=== PATIENT | female | born 1990 | race Hispanic/Latino ===

== ENCOUNTER 2016-09-12 20:24 | Emergency (ER) | payer OTHER ==
[~2016-09-12] VITALS: Ht 160 cm; Wt 72.7 kg
[2016-09-12 20:52] VITALS: BP 110/70; PULSE 76; RESP 20; O2SAT 96
[2016-09-12 21:21] LABS: BASOPHILS % (AUTO) 0.4 % (0-3); MONOCYTES % (AUTO) 7.9 % (4-12); Mean Corpuscular Hemoglobin 28.2 pg (27.0-35.0); Mean Corpuscular Volume 85.5 fL (81-100); NEUTROPHILS % (AUTO) 63.5 % (40-74); Platelet Count 315 bil/L (150-400)
--- NOTE | 2016-09-12 22:22 | ED.REPORT ---
HPI-Preg Under 20 Weeks Date of Service Sep 12, 2016 ED Provider: Omar Dykes MD The patient is a 26 year old female with history of migraines, who presents to the emergency department complaining of epigastric pain that began 1 week ago. She has noticed the pain everyday since onset but it usually goes away. Today her pain has remained constant all day. Her pain radiates around her ribs to her back. She has also noticed nausea and vomiting. Her symptoms are worse with eating or movement. She denies fever or chills. She is currently about 8 weeks . She has not been evaluated yet for this but does have an appointment scheduled in 2 days. She has noticed mild pelvic cramping but denies any vaginal bleeding or discharge. She has been a total of 3 times, she has one living child, and had an several years ago. The patient mentions that last week she had an episode of vision loss that lasted for about 20 minutes. She states she was driving and suddenly everything "went black." She developed a headache after the vision change. She has never had similar symptoms in the past. She has not had similar symptoms since. Nursing Notes Stated Complaint: STOMACH/BACK PAIN, ~8 WKS Chief Complaint: Female Abdominal Pain Nursing Notes Reviewed: Yes Allergies: Coded Allergies: No Known Allergies (Verified Allergy, Unknown, 07/19/15) No Active Prescriptions or Reported Meds General Time Seen by Provider: 22:22 Chief Complaint Abdominal pain Hx Obtained From: Patient Arrived By: Walk-in Onset Occurred: 1 week ago Symptom Duration: Since onset Progression Since Onset: Constant Location: : Abdomen upper: Epigastric Quality: Painful Radiation: : Back Severity: Current: Moderate Severity: Maximum: Severe Recent Healthcare: No recent doctor visit, No recent hospitalization Similar Sx Previous: No Past Medical History Past Medical History Denies A1 Past Surgical History Denies Family History Noncontributory Smoking History Never Smoker Social History Alcohol Use: Denies alcohol use Drug Use: Denies drug use Other Social History: Good social support, Lives with children, Local resident Ambulatory Status Independent Review of Systems Constitutional: Denies: Chills, Fever GI: Reports: Abdominal pain, Nausea, Vomiting Female: Reports: Pelvic pain, , Denies: Vaginal bleeding - abnl, Vaginal discharge Musculoskeletal: Reports: Back pain Neurologic: Reports: Vision change (resolved), Denies: Headache (resolved) Complete sys rev & neg: except as marked. Physical Exam Initial Vital Signs Vital Signs (First) Date Time Temp Pulse Resp B/P Pulse Ox O2 Delivery O2 Flow Rate FiO2 09/12/16 20:52 36.6 76 20 110/70 96 Room Air Initial VS: Reviewed Head / Eyes: Atraumatic, Normocephalic, PERRL ENT: Mucous membranes moist, Conjunctiva normal, No scleral icterus Neck: Supple, Non-tender, Full range of motion Respiratory: Breath sounds normal, Clear to auscultation, No respiratory distress Cardiovascular: Regular rate & rhythm, Heart sounds normal, Intact distal pulses Back: No CVA tenderness Lymphatic: No lymphadenopathy Extremities: Vascular intact, Neuro intact, No swelling, No tenderness Skin: Warm, Dry, No cyanosis Neurologic: Alert, Oriented, Nonfocal Psychiatric: Mood/affect normal, Behavior normal, Normal thought content General/Constitutional: Awake, Alert, No acute distress, Cooperative Abdomen: Soft, No guarding, No rebound, BS normoactive, No distention, No hernia, No palpable mass, No pulsatile mass Tenderness/Guarding/Rebound: Positive: Tender RUQ..., Tender epigastric, Tender suprapubic, Negative: Tender LLQ..., Tender RLQ... Female Genitourinary: Exam deferred : Exam deferred Interpretation & Diagnostics Interpretation & Diagnostics: Urine : positive Urine dip: positive for leukocytes Lab Results Interpretation Result Diagram: 09/12/16210409/12/16 210 Test 09/12/16 21:00 09/12/16 21:05 Urine Color Yellow (YELLOW) Urine Appearance Clear (CLEAR,HAZY) Urine pH 7.0 (5.0-8.0) Urine Specific Sharps 1.015 (1.003-1.035) Urine Protein Negativemg/dL (NEG,TRACE) Urine Glucose (UA) Negativemg/dL (NEGATIVE) Urine Ketones Negativemg/dL (NEGATIVE) Urine Occult Blood Negative (NEGATIVE) Urine Nitrite Negative (NEGATIVE) Urine Bilirubin Negative (NEGATIVE) Urine Urobilinogen Normalmg/dL (NORMAL) Urine Leukocyte Esterase Negative (NEGATIVE) Urine RBC 0-2/hpf (0-2) Urine WBC 0-5/hpf (0-5) Urine Epithelial Cells Few/hpf (NONE-MOD) Urine Crystals None seen (NONE SEEN) Urine Bacteria Few/hpf (NONE-FEW) Urine Hyaline Casts None/lpf (NONE) Urine Granular Casts None seen (NONE SEEN) Urine Waxy Casts None seen (NONE SEEN) Urine Red Blood Cell Casts None seen (NONE SEEN) Urine White Blood Cell Casts None seen (NONE SEEN) Urine Mucus None seen (None Seen) Urine Trichomonas None seen (NONE SEEN) Urine Yeast None (NONE SEEN) Urinalysis Comment Amorphous sediment Urine Culture Reflexed Not indicated Hold Urine Received (Received) White Blood Count 11.2th/mm3 (3.8-10.1) Red Blood Count 4.75mil/mm3 (3.90-5.20) Hemoglobin 13.4g/dL (12.0-15.6) Hematocrit 40.6% (35.0-46.0) Mean Corpuscular Volume 85.5fL (81-100) Mean Corpuscular Hemoglobin 28.2pg (27.0-35.0) Mean Corpuscular Hemoglobin Concent 33.0% (32.0-37.0) Red Cell Distribution Width 13.3% (12.3-15.4) Platelet Count 315bil/L (150-400) Neutrophils (%) (Auto) 63.5% (40-74) Lymphocytes (%) (Auto) 26.9% (14-46) Monocytes (%) (Auto) 7.9% (4-12) Eosinophils (%) (Auto) 1.0% (0-5) Basophils (%) (Auto) 0.4% (0-3) Sodium Level 135mEq/L (134-144) Potassium Level 3.7mEq/L (3.5-5.2) Chloride Level 99mEq/L (97-108) Carbon Dioxide Level 19mmol/L (18-29) Blood Urea Nitrogen 8mg/dL (6-20) Creatinine 0.61mg/dL (0.57-1.00) Estimat Glomerular Filtration Rate 167mL/min (>59) Glucose Level 114mg/dL (60-99) Calcium Level 9.5mg/dL (8.5-10.1) Magnesium Level 2.0mg/dL (1.6-2.6) Total Bilirubin 0.2mg/dL (0.0-1.2) Aspartate Amino Transf (AST/SGOT) 20U/L (0-50) Alanine Aminotransferase (ALT/SGPT) 20U/L (0-32) Alkaline Phosphatase 96U/L (25-150) Total Protein 8.0g/dL (6.4-8.4) Albumin 4.1g/dL (3.4-5.0) Lipase 25U/L (13-60) Hold Eisenberg Top Tube Received (Received) Re-Eval/Medical Decision Source of Hx: Old records Re-Evaluation/Progress : Time of Eval: 23:21 Re-Evaluation/Progress Note: Rechecked the patient. Discussed lab results, diagnosis, and plan for discharge. All questions were addressed. Counseled Regarding: Diagnosis, Lab results, Need for follow-up, When/why to return to ED Discharge & Departure Primary Impression: Epigastric abdominal pain Additional Impression: Weeks of gestation: 8 weeks Qualified Code: Z3A.08 - 8 weeks gestation of Disposition: Home Discharge Condition All VS Reviewed: Yes Condition: Stable Patient Instructions: (ED) Additional Instructions: Thank you for entrusting us with your care today. Your workup today is reassuring. There is no evidence of a urinary tract infection. Use Tylenol as needed for your discomfort. Keep your appointment with the OBGYN that is scheduled for the . Seek care for any new or concerning symptoms. The upper abdominal pain you are experiencing may be related to a gallbladder condition. I recommend you discuss this with your primary provider. Additionally, you reported some significant lower abdominal cramping similar to cramping with your period. If the cramping becomes much worse, especially if it is associated with bleeding or worsening pain, return to the emergency department. Follow-up right away for worsening upper abdominal pain especially if it is associated with fever or jaundice. Referrals: [facility] Scribe Attestation Portions of this note were transcribed by Shivani Butler. I, Dr. Dykes personally performed the history, physical exam and medical decision-making; I reviewed and confirmed the accuracy of the information in the transcribed note. Signed by: Tita Cervantes, 09/12/2016 at 2330. copies to: [facility] Omar Dykes MD Sep 12, 2016 22:22 Shivani Butler Sep 12, 2016 22:29
[2016-09-12 23:04] LABS: APPEARANCE,URINE CLEAR (CLEAR,HAZY); COLOR,URINE YELLOW (YELLOW); OCCULT BLOOD,URINE NEGATIVE (NEGATIVE); UROBILINOGEN,URINE NORMAL (NORMAL)
[2016-11-19] MEDS ORDERED: HYDR-4003 PO (16:32)
[2016-11-19] MEDS ORDERED: PREN-12 PO (16:32)
[2016-11-19] MEDS ORDERED: ONDA-53 PO (16:32)
== END 2016-09-12 23:36 | disposition home or self-care (01) ==
LOC: SED 20:24
DX: O26.891 Other specified pregnancy related conditions, first trimester (principal); Z3A.08 8 weeks gestation of pregnancy

== ENCOUNTER 2016-10-29 23:45 | Emergency (ER) | payer OTHER ==
[~2016-10-29] VITALS: Ht 160 cm; Wt 77.3 kg
[2016-10-29 23:56] VITALS: BP 92/63; PULSE 81; RESP 15; O2SAT 95
--- NOTE | 2016-10-30 01:02 | ED.REPORT ---
HPI-Allergic Reaction Date of Service October 30, 2016 ED Provider: Josafat Méndez MD The pt is a 26 y/o female presenting to the ED complaining of a rash on her forearms onset earlier today. She noticed it after she ate tong and radish tacos w/ green salsa. She is also 15 weeks and taking a vitamin. She does not use sunscreen. Nursing Notes Stated Complaint: RASH Chief Complaint: Allergic Reaction Nursing Notes Reviewed: Yes Allergies: Coded Allergies: No Known Allergies (Verified Allergy, Unknown, 07/19/15) Scheduled Hydrocortisone (Hydrocortisone) 453.6 Gm Cream..g. 453.6 GM TP QID Loratadine (Claritin) 10 Mg Capsule 10 MG PO DAILY General Time Seen by MD: 01:01 Chief Complaint Rash (Bilat forearms ) Hx Obtained From: Patient Arrived By: Walk-in Onset Occurred: 5 - 8 hours ago Recent Healthcare: No recent doctor visit, No recent hospitalization Similar Sx Previous: No Past Medical History Past Medical History Denies A1 Past Surgical History Denies Family History Noncontributory Smoking History Never Smoker Social History Alcohol Use: Denies alcohol use Drug Use: Denies drug use Other Social History: Good social support, Lives with children, Local resident Ambulatory Status Independent Review of Systems Constitutional: Denies: Chills, Fever Skin: Reports Rash (Bilat forearms ) Complete sys rev & neg: except as marked. Physical Exam Initial Vital Signs Vital Signs (First) Date Time Temp Pulse Resp B/P Pulse Ox O2 Delivery O2 Flow Rate FiO2 10/29/16 23:56 36.4 81 15 92/63 95 Room Air Initial VS: Reviewed Head / Eyes: Atraumatic, Normocephalic, PERRL ENT: Mucous membranes moist, Conjunctiva normal, No scleral icterus Neck: Supple, Non-tender, Full range of motion Abdomen / GI: Soft, Non-tender, No guarding, No rebound, No distention Back: No CVA tenderness Neurologic: Alert, Oriented, Nonfocal Psychiatric: Mood/affect normal, Behavior normal, Normal thought content General/Constitutional: Awake, Alert Respiratory / Chest: Breath sounds NL, Breath sounds = bilat, No respiratory distress, No rales, No rhonchi, No wheezing, No retractions, No stridor Cardiovascular: Heart rate NL, Regular rhythm, Heart sounds NL, Peripheral circulation NL Skin: Warm, Dry Rash on dorsal surface Maculopapular rash Re-Eval/Medical Decision Med Decision/Clinical Course 18-year-old currently twenty weeks presents with an itchy rash on the dorsum of her arms only in a pattern consistent with solar dermatosis by some sensitizing compound. Hydrocortisone cream and loratadine provided. Sun protection recommended. Some ingestion or other is sensitized her but the actual culprit is not known. Re-Evaluation/Progress : Time of Eval: 02:00 Re-Evaluation/Progress Note: Pt rechecked. Informed pt of plan for treatment. Pt understands and agrees with plan for treatment. F/U instructions and RTER warnings given. All questions addressed. Counseled Regarding: Diagnosis, Need for follow-up, When/why to return to ED Discharge & Departure Shift Change Sign-Out Response to Therapy: Improved Primary Impression: Solar dermatitis Additional Impressions: Second trimester Allergic dermatitis Disposition: Home Discharge Condition All VS Reviewed: Yes Condition: Stable Additional Instructions: This appears to be an allergic reaction, stimulated by the sun. It is difficult to know what particular compound has sensitized you, but many compounds are known to do so, including some vitamins. Claritin daily for itch and antihistamine. This is safe in . Hydrocortisone cream three times daily to the rash. Follow-up with your doctor and with your CORE MEASURES ABSTRACTOR. Referrals: NOPCP (PCP) Scribe Attestation Portions of this note were transcribed by Girma Orlando. I, Dr. Méndez personally performed the history, physical exam and medical decision-making; I reviewed and confirmed the accuracy of the information in the transcribed note. Signed by : Tita Hubbard, 10/30/16 and 0306. Josafat Méndez MD October 30, 2016 01:01 Girma Orlando October 30, 2016 03:06
[2016-10-30] MEDS ORDERED: HYDR28.484 RC (02:15)
[2016-10-30] MEDS ORDERED: LORA10CA PO (02:15)
[2016-10-30] MEDS ORDERED: HYDR453.3 TP (02:18)
[2016-10-30 02:41] VITALS: PULSE 80; RESP 16
[2016-11-19] MEDS ORDERED: ONDA-53 PO (16:32)
[2016-11-19] MEDS ORDERED: HYDR-4003 PO (16:32)
[2016-11-19] MEDS ORDERED: PREN-12 PO (16:32)
== END 2016-10-30 02:42 | disposition home or self-care (01) ==
LOC: SED 23:45
DX: O99.712 Diseases of the skin and subcutaneous tissue complicating pregnancy, second trimester (principal); L57.8 Other skin changes due to chronic exposure to nonionizing radiation; L23.9 Allergic contact dermatitis, unspecified cause; Z3A.20 20 weeks gestation of pregnancy

== ENCOUNTER 2016-11-23 05:47 | Day surgery (SDC) | payer OTHER ==
[2016-11-23] VITALS (13 sets, daily range): BP systolic 94–117; BP diastolic 51–73; PULSE 70–112; RESP 9–17; O2SAT 92–99
[~2016-11-23] VITALS: Ht 160 cm; Wt 75.0 kg
[~2016-11-23 05:47] MED LIST: HYDR-4003 PO; ONDA-53 PO; PREN-12 PO
[2016-11-23] MEDS ORDERED: Rocuronium 10 mg/mL 5 mL Inj ONE (05:48)
[2016-11-23] MEDS ORDERED: Ondansetron 2 mg/mL 2 mL Inj ONE (05:48)
[2016-11-23] MEDS ORDERED: Phenylephrine/NS 100 mCg/mL 10 mL Syringe IVPUSH ONE (05:48)
[2016-11-23] MEDS ORDERED: Neostigmine 1 mg/mL 10 mL Inj ONE (05:48)
[2016-11-23] MEDS ORDERED: Glycopyrrolate 0.2 MG/ML 1mL Inj ONE (05:48)
[2016-11-23] MEDS ORDERED: fentaNYL-PF 50 mCg/mL 2 mL Inj ONE (05:48)
[2016-11-23] MEDS ORDERED: Propofol 10,000 mCg/mL 20 mL Inj ONE (05:48)
[2016-11-23] MEDS ORDERED: Succinylcholine Chloride 20 mg/mL 5 mL Inj ONE (05:48)
[2016-11-23] MEDS ORDERED: EPHEDrine/NS 5 mg/mL 5 mL Syringe ONE (05:48)
[2016-11-23] MEDS ORDERED: CeFAZolin 2 Gm/50 mL D5W IV Premix IV ONE (06:00)
[2016-11-23] MEDS ORDERED: Heparin 5,000 Unit/mL Inj ONE (06:37)
[2016-11-23] MEDS: Lactated Ringer's 1,000 ML IV SCH ×2 (06:40→07:27)
--- NOTE | 2016-11-23 07:16 | PCM.HPANE ---
Patient Data Surgeon Admitting Provider: Attending Provider:Kyle Pradhan MD Primary Care Physician:Ricky Other Provider:Abebe Corley Anesthesia Reason for Visit Gallstones Ht/WT & BMI Height (Feet): 5 Height (Inches): 3.00 Weight (Kilograms): 75.000 Body Mass Index 29.00 Allergies Coded Allergies: No Known Allergies (Verified Allergy, Unknown, 07/19/15) Past Anesthesia History Anesthesia History: Positive for:: Anesthesia Reactions (only with preg- labor epidural ), Denies:: Abnormal Airway, Difficult Intubation, Fam Anesthesia Reaction Additional Information: Never had surgery in the past, denies anesthetic section. Diabetes History Hx Diabetes?: No Current Bedside Blood Glucose: 95 MRSA MRSA: No Medications Hypertension Medication: No Home Meds Incl Beta Isabella: No Reported Medications Vit W-Ca,Fe,FA(<1 mg) ( Formula)1 Each Tablet1 Each PO DAILY 11/19/16 Ondansetron 4 Mg Tablet4 Mg PO DAILY PRN For Nausea 11/19/16 Hydrocodone-Acetaminophen 5-325 mg 1 Each Tablet1 Tablet PO Q4H PRN For Pain Ref 0 11/19/16 Discontinued Scripts Hydrocortisone 453.6 Gm Cream..g.453.6 Gm TP QID #1 TUBE Prov:Josafat Méndez MD 10/30/16 Loratadine (Claritin)10 Mg [id number] Mg PO DAILY #30 CAPSULE Prov:Josafat Méndez MD 10/30/16 History History of ENT Problems?: No HEENT History: Denies:: Abnormal Airway Cataracts Difficult Intubation Dysphagia Glaucoma Hearing Problem Sinus Problem TMJ Denture Type: None Teeth Condition: Within Normal Limits Hx of Heart Problems?: Yes Cardiovascular History: Positive for:: Edema (slight with ) Denies:: AICD Abdominal Aortic Aneurism Atrial Fibrillation Cardiac Surgery Chest Pain Congestive Heart Failure Coronary Artery Disease Heart Murmur Hypertension Irregular Heartbeat Pacemaker Peripheral Vascular Hx of Respiratory Problem?: No Respiratory History: Denies:: Asthma COPD Emphysema Oxygen Administration Pneumonia Tuberculosis Use of C-PAP Machine Use of Inhalers / NEBS Hx Neurologic Problems?: No Neurological History: Positive for:: Headaches (since age 11) Denies:: Alzheimer's Disease CVA Multiple Sclerosis Parkinson's Disease Seizures TIA Hx of GI Problems?: Yes Other History/Comment Daily reflux, nausea (related to (?) or gallstones Hx of Problems?: Yes Genitourinary History: Positive for:: Urinary Tract Infection (had infection during 1st trimester ) Denies:: Kidney Stones Female Hx: Positive for:: Currently (19 weeks; FHT 150's per C RN) Denies:: Problems with Breasts? Other History/Comment @19 weeks Skin History: Denies:: History Skin Disorders? Pressure Ulcers Hx Musculoskeletal Problems?: No Musculoskeletal History: Denies:: Fibromyalgia Joint Replacement Musculoskeletal Trauma Osteoarthritis Systemic Lupus Hx of Psycho/Social Problems?: No Psycho Social History: Denies:: Anxiety Hx Depression Hx Surgeries?: No Hx Any Other Health Problems?: No Other History: Denies:: Cancer Thyroid Disease History Blood Transfusions: Positive for:: Accept Blood Products? Denies:: Blood Transfusions Hx Diabetes: NoBedside Blood Glucose: 95 Hx Alcohol Use: NoHx Substance Use: No Smoking Status: Never Smoker Stop/Bang S-Snoring: Do You Snore Loudly: No T-Tired: feel tired, fatigued: Yes O-Obsered: Observed not breath: No P-Blood Pressure: treated: No B- Body Mass Index > 35 kg/m2: No A- Age over 50: No N- Neck Large Circumference: No G- Gender Male: No MARIA LUZ Total Score: 1 Risk Assessment Category Category 1A: Patient has history of documented sleep apnea, and HAS NOT received any narcotic, sedative or anesthesia administration during this stay. Category 1B: Patient has history of documented sleep apnea, and HAS received any narcotic , sedative or anesthesia administration during this stay Category 2: Patient has SUSPECTED Obstructive Sleep Apnea, and HAS received any narcotic , sedative or anesthesia administration during this stay. Category 3: Patient has SUSPECTED Obstructive Sleep Apnea and HAS NOT received narcotic, sedative or anesthesia administration during this stay. Category 4: Outpatient in Procedural Areas with known sleep apnea or who screen positive for High Risk via the STOP/BANG questionnaire. Exam Exam Vital Signs Vital Signs Date Time Temp Pulse Resp B/P Pulse Ox O2 Delivery O2 Flow Rate FiO2 11/23/16 06:28 35.9 95 15 94/52 99 Room Air General Appearance: Alert, Oriented X3, Cooperative HEENT/AIRWAY: MP 2 Lungs: Clear to Auscultation, Normal Air Movement Heart: Exam Unremarkable, Regular Rate/Rhythm, No Murmurs/Rubs/Gallops Meds/Labs/Diagnostics Admission Meds Current Medications Lactated Ringer's (Lr) 1,000 ml @ 120 mls/hr Q8H20M IV Last administered on t 06:40; Start 11/23/16 at 05:00; Stop 11/23/16 at 13:19 Bedside Blood Glucose: 95 Plan Impression Patient chart reviewed, patient interviewed and anesthestic plan with risks, benefits, and alternatives discussed, and informed consent obtained. ASA Physical Status: ASA2 Mod Systemic Disease Anesthetic Plan: GA Bene/Risks/Altern/Consents: Yes HP Complete Prior to Induction: Yes Flavio Dunn MD Nov 23, 2016 07:16
[2016-11-23] MEDS ORDERED: Heparin 5,000 Unit/mL Inj SUBQ ONE (07:42)
[2016-11-23] MEDS ORDERED: Bupivacaine 0.5%/EPI 50 mL Inj INFILTRATE ONE (07:57)
[2016-11-23] MEDS ORDERED: Lactated Ringer's 1,000 ML IV SCH (08:11)
[2016-11-23] MEDS ORDERED: Lactated Ringer's 500 ML IV PRN (08:11)
[2016-11-23] MEDS ORDERED: Ondansetron 2 mg/mL 2 mL Inj IVPUSH PRN (08:15)
[2016-11-23] MEDS ORDERED: Dexamethasone 4 mg/mL Inj IVPUSH PRN (08:15)
[2016-11-23] MEDS ORDERED: Phenylephrine 10,000 mCg/mL Inj IVPUSH PRN (08:15)
[2016-11-23] MEDS ORDERED: MetoCLOpramide 5 mg/mL 2 mL Inj IVPUSH PRN (08:15)
[2016-11-23] MEDS ORDERED: EPHEDrine Sulfate 50 mg/mL Inj IVPUSH PRN (08:15)
[2016-11-23] MEDS ORDERED: HYDROmorphone 1 mg/mL Inj IVPUSH PRN (08:15)
[2016-11-23] MEDS ORDERED: Lactated Ringer's 1,000 ML IV ONE (08:28)
[2016-11-23] MEDS ORDERED: HYDROcodone-APAP 5-325 mg Tablet PO PRN (08:50)
[2016-11-23] MEDS: fentaNYL-PF 50 mCg/mL 2 mL Inj IVPUSH PRN ×4 (09:05→09:45)
[2016-11-23] MEDS ORDERED: HYDR-4003 PO (09:08)
--- NOTE | 2016-11-23 09:13 | OP ---
[address] [address] OPERATIVE REPORT PATIENT: KEIKO ANDRADE : 1990 MR#: [id number] ADMIT: 11/23/2016 JOB ID: [id number] DATE OF SURGERY: 11/23/2016 PREOPERATIVE DIAGNOSIS(ES): 1. Biliary colic. 2. Second-trimester . POSTOPERATIVE DIAGNOSIS(ES): 1. Biliary colic. 2. Second-trimester . PROCEDURE: Laparoscopic cholecystectomy. SURGEON: Kyle Pradhan MD. SCHOOL CLERK: Luca Viramontes PA-C and Jay Aguilera PA-C INDICATIONS: A 26-year-old female who is now in her 2nd trimester . I first met her when she was in the first trimester, and she was found by OB ultrasound to have a 1.2 cm gallstone. She has right upper quadrant pain associated with nausea and vomiting occurring daily as well as at night. There is no history of jaundice, acholic stools, dark urine, or pancreatitis. She tried medical management with hydrocodone with acetaminophen, and acetaminophen alone and also simplified her diet, but her symptoms persisted and after discussing options with the patient, it was elected to proceed with a laparoscopic cholecystectomy and possible cholangiograms. FINDINGS: The triangle of Calot was completely dissected out and a photograph taken. She had normal anatomy with the typical classic arrangement of the cystic duct being inferior to the artery. The cholangiograms were not performed. PROCEDURE: Prior to the operation heart tones were assessed and were present. The patient and her were aware that there may be risks to the fetus, but on the other hand, they are also aware that critical primus that we need to treat the health of the mother to give the fetus the best opportunity. It was also confirmed she was in her second trimester. The SCOAP checklist was completed. A general endotracheal anesthetic was induced using ChloraPrep. She was prepped and draped in usual fashion. All trocar sites were infiltrated with 0.5% plain bupivacaine. An infraumbilical incision was made. The abdominal cavity was entered. A cannula inserted. The abdomen insufflated with CO2, and she was placed in the reverse Trendelenburg position rotated to the left. Accessory 5 mm ports were placed with one in the upper midline and two in the right upper quadrant. The fundus of the gallbladder was elevated and the infundibulum retracted inferiorly and laterally using blunt dissection and the hook cautery. The origin of the cystic duct was defined and the entire triangle of Calot was dissected free identifying the cystic artery and the cystic duct. The plate was released and then first the artery and then the cystic duct were divided after placing two clips proximally and one distally. The gallbladder was dissected away from the liver using cautery. I did not enter the gallbladder, but it was placed into a specimen bag. The subhepatic and right subphrenic spaces were irrigated with saline and aspirated. There is no evidence of bleeding or bile leak. The specimen bag was removed through the umbilical port. The umbilical fascial incision was closed with running 0-Vicryl. Skin incisions with subcuticular 4-0 Vicryl. There is no evidence of bleeding from trocar sites. Estimated blood loss less than 10 cc. There were no apparent complications. The final sponge, needle, and instrument counts were announced as correct. The patient was returned to recovery in stable condition. Critical assistance was provided by Luca Viramontes PA-C and Jay Aguilera PA-C.
--- NOTE | 2016-11-23 11:39 | PCM.ANEP1 ---
Post Anesthesia PACU Phase 1 Assessment Vital Signs Vital Signs Date Time Temp Pulse Resp B/P Pulse Ox O2 Delivery O2 Flow Rate FiO2 11/23/16 10:12 74 16 102/64 97 Room Air 11/23/16 10:00 82 15 117/61 96 Room Air 11/23/16 09:44 84 16 101/63 98 Nasal Cannula 2 11/23/16 09:35 85 13 99/60 97 Nasal Cannula 2 11/23/16 09:30 70 9 104/59 Nasal Cannula 11/23/16 09:20 95 17 106/73 94 Nasal Cannula 2 11/23/16 09:15 84 12 104/61 95 Nasal Cannula 2 11/23/16 09:10 36.0 84 13 109/62 95 Room Air 11/23/16 09:05 100 15 112/60 92 Room Air 11/23/16 09:00 100 15 112/63 94 Room Air 11/23/16 08:50 111 16 106/53 93 Room Air 11/23/16 08:48 36.1 112 16 110/51 92 Room Air 11/23/16 06:28 35.9 95 15 94/52 99 Room Air Anesthetic Administered: GA Level of Alertness: Sleepy, easy to arouse CROW's with Equal Strength: Yes Pain: No Nausea or Vomiting: No CV Function & Hydration Stable: Yes Airway Device: Oxygen Delivery: Simple Mask Lungs: Clear to Auscultation, Normal Air Movement PACU Phase 2 Assessment Complications: No Follow up Care: N/A Patient Instructions Provided: N/A Comments FHR's 120's evaluated by MATCH UP WORKER for 'labor pains" in recovery Flavio Dunn MD Nov 23, 2016 11:39
--- NOTE | 2016-11-24 10:50 | PATH ---
SURGICAL PATHOLOGY Attending Physician:Stefania Madison CASE STATUS: Signed Out PATIENT NAME: KEIKO ANDRADE PID: [id number] : 1990 DATE COLLECTED:11/23/2016 16:17 SPECIMEN: Gallbladder CLINICAL HISTORY: GALLSTONES 1. GALLBLADDER FINAL DIAGNOSIS: 1.GALLBLADDER: CHRONIC CHOLECYSTITIS WITH CHOLELITHIASIS. CHOLESTEROLOSIS. NO EVIDENCE OF MALIGNANCY. ICD10 K80.6 GROSS DESCRIPTION: The specimen is received in one formalin filled container labeled with the patient's name, sublabeled "gallbladder" and consists of a slightly opened 7.0 x 2.5 x 2.5 CM gallbladder. The serosa is smooth. The wall is 0.2-0.5 CM in thickness. The mucosa is a yellow to green piper in color. The lumen contains a light green mucoid material and one light green rough calculus which measures 0.9 cm in greatest dimension. 5 jewelry sales representative sections are submitted in one cassette. 11/23/2016 DAC MICRO DESCRIPTION: See diagnosis. ICD-9 CODES: CPT CODES: 1: 61043 Electronically Signed Out Edward Ellis MD [facility] [address], [place] [address] Technical component performed at [facility], [address] [place] [address] Ave[address], [place], [address]
== END 2016-11-23 23:59 | disposition home or self-care (01) ==
LOC: SAS 05:47
PROVIDERS: ATTEND Surgery
PROC: 0FT44ZZ Resection of Gallbladder, Percutaneous Endoscopic Approach (ICD-10-PCS; principal; 2016-11-23 07:30)
DX: O99.612 Diseases of the digestive system complicating pregnancy, second trimester (principal); K80.10 Calculus of gallbladder with chronic cholecystitis without obstruction; Z3A.19 19 weeks gestation of pregnancy
CPT/HCPCS: 47562; 88304; G0463; J0330; J0690; J1644; J1885; J2250; J2270; J2370; J2405; J2710; J3010; J7120